=== PATIENT | female | born 1950 | race Caucasian/White ===

== ENCOUNTER 2023-05-28 09:16 | Emergency (ER) | payer OTHER ==
--- OUTSIDE RECORDS SUMMARY | 2023-05-28 09:18 | XMS REPORT | Continuity of Care Document ---
:1950 Author Organization [facility] t Address [address] [place] [address] [address] [place] [address] Care Team Providers Name Role Phone JOANNA GUNTER Primary Care Physician Unavailable RACHEL ROSARIO Attending Clinician Unavailable Izzy Bojorquez Attending Clinician IZZY DIANA Attending Clinician Unavailable IZZY DIANA Admitting Clinician Unavailable Payers Payer Name Policy Type Policy Number Effective Date Expiration Date S ource Problems Condition Condition Condition Status Onset Resolution Last Treating Co mments Source Name Details Category Date Date Treatment Clinician Date No known No known Disease Unive rs active active ity of problems problems [facility] Allergies, Adverse Reactions, Alerts Allergy Allergy Status Severity Reaction(s) Onset Inactive Treating Comm ents Source Name Type Date Date Clinician Codeine Propensi Active Other - See 2020-0 Un stepan ty to comments 4-12 ity of adverse 00:00: [place] reaction 00 [facility] Tetracyc Propensi Active Other - See 2020-0 Yeast U nivers line ty to comments 4-12 infection ity o f adverse 00:00: . [place] reaction 00 [facility] CODEINE DRUG Active Other-Cmnt 2020-0 Unive rs INGREDI 4-12 ity of 00:00: [place] 00 [facility] TETRACYC DRUG Active Other-Cmnt 2020-0 Univ ers LINE INGREDI 4-12 ity of 00:00: [address] NO KNOWN Drug Active Univers ALLERGIE Class ity of S [facility] Social History Social Habit Start Date Stop Date Quantity Comments Source Sexual orientation Method is Hospital Sex Assigned At 1950-09-271948-09-27 Met [facility] [place] [facility] 00:00:00 00:00:00 Smoking Status Start Date Stop Date Source Tobacco smoking consumption unknown [facility] Medications Ordered Filled Start Stop Current Ordering Indication Dosage Frequency Signature Comments Components Source Medication Medication Date Date Medication? Clinician (SIG) Name Name pantoprazol 40mg 40 mg, IV Univers e 10-24 Piggyback, ity of (PROTONIX) 21:30: 20:54 ONCE, 1 Abraham as 40 mg in 00 :00 dose, [facility] NaCl 0.9% 10/25/19 at [facility] ch (NS) 100 mL 1630, 100 MINI-BAG mL pantoprazol Yes [id number] 40mg Take 1 Univers e 40 mg EC 10-24 tablet by ity of tablet 00:00: mouth [place] 00 daily. [facility] Vital Signs Vital Name Observation Time Observation Value Comments Source Systolic blood 2019-10-25 22:38:21 185 mm[facility]Hg[facility] Diastolic blood 2019-10-25 22:38:21 73 mm[Hg] [facility] Heart rate 2019-10-25 22:38:21 63 /min [facility] Respiratory rate 2019-10-25 22:38:21 16 /min [facility] Oxygen saturation in 2019-10-25 22:38:21 99 /min [facility] Arterial blood by [facility] Pulse oximetry [place] Body temperature 2019-10-25 19:06:00 36.22 Nathaly [facility] Body height 2019-10-25 19:06:00 162.6 cm [facility] Body weight 2019-10-25 19:06:00 68.04 kg [facility] BMI 2019-10-25 19:06:00 25.75 kg/m2 [facility] Procedures Procedure Date / Time Performing Clinician Source Performed US GALL BLADDER 2019-10-25 21:47:49 Izzy Diana [facility] XR CHEST 1 VW 2019-10-25 19:54:57 Izzy Diana [facility] CORONAVIRUS COVID-19 2019-10-25 19:44:00 Izzy Diana [facility] TESTING [facility] LIPASE 2019-10-25 19:21:00 Aly Mckeon [facility] TROPONIN I 2019-10-25 19:21:00 Aly Mckeon [facility] COMP. METABOLIC PANEL 2019-10-25 19:21:00 Aly Mckeon [facility] ([id number]) [facility] CBC WITH DIFFERENTIAL 2019-10-25 19:21:00 Aly Mckeon [facility] PROTHROMBIN TIME / INR 2019-10-25 19:21:00 Aly Mckeon [facility] ACTIVATED PARTIAL 2019-10-25 19:21:00 [facility] 2019-10-25 19:21:00 Aly Mckeon [facility] EKG-12 LEAD 2019-10-25 19:19:46 Aly Mckeon [facility] Plan of Care Planned Activity Planned Date Details Comments Source Future Scheduled 2023-05-12 Screening for [facility] Test 06:24:45 malignant neoplasm of colon (procedure) [code = 525661063] Future Scheduled 2023-05-12 Screening for [facility] Test 06:24:45 malignant neoplasm of colon (procedure) [code = 429263016] Future Scheduled 2023-05-12 SHINGLES [facility]ACCINES (2 [facility] 06:24:45 of 3) [code = SHINGLES VACCINES (2 of 3)] Future Scheduled 2023-05-12 65+ [facility]OC[facility]CCAL [facility] Test 06:24:45 VACCINE (1 - PCV) [code = 65+ PNEUMOCOCCAL VACCINE (1 - PCV)] Future Scheduled 2023-05-12 COVID-19 VACCINE (3 - [facility] Test 06:24:45 season) [code = COVID-19 VACCINE (3 - season)] Future Scheduled 2023-05-12 INFLUENZA VACCINE (#1) [facility] 06:24:45 [code = INFLUENZA VACCINE (#1)] Future Scheduled 2023-05-12 Screening for [facility] Test 06:24:45 malignant neoplasm of colon (procedure) [code = 950782140] Future Scheduled 2023-05-12 Screening for [facility] Test 06:24:45 malignant neoplasm of colon (procedure) [code = 369303055] Future Scheduled 2023-05-12 Screening for [facility] Test 06:24:45 malignant neoplasm of colon (procedure) [code = 200010222] Future Scheduled 2023-05-12 Hepatitis C screening [facility] Test 06:24:45 (procedure) [code = 150793820] Future Scheduled 2023-05-12 BREAST CANCER [facility] Test 06:24:45 SCREENING [code = BREAST CANCER SCREENING] Encounters Start End Encounter Admission Attending Care Care Encounter Source Date/Time Date/Time Type Type Clinicians Facility Department ID 2021-09-12 2021-09-12 Outpatient [facility] [id number] [address] [place] 00:00:00 00:00:00 RACHEL [address] 2021-09-12 2021-09-12 Outpatient [facility] [id number] [address] [place] 00:00:00 00:00:00 RACHEL [address] 2019-10-25 2019-10-25 Emergency [facility] [id number] Univers 14:07:56 17:44:00 Izzy Luna [id number] i ty [facility] [id number] [facility] [id number] [facility] 0[address] Branch 2019-10-25 2019-10-25 Emergency X [facility] ERT [id number] Univers 14:07:56 17:44:00 IZZY barrow of [facility] Results Test Description Test Time Test Comments Results Result Comments Source Urinalysis 2019-10-25 20:12:00 Test Item Value Reference Range Interpretation Comme nts APPEARANCE (test code = Clear Clear 6845973518) COLOR (test code = 8625644679) Yellow Yellow PH (test code = 6008985080) 4.8-8.0 SP GRAVITY (test code = 1.003-1.030 3733733379) GLU U QUAL (test code = Normal Normal 0965845803) BLOOD (test code = 5628367770) 1+ Negative A KETONES (test code = 1465414190) Negative Negative PROTEIN (test code = 2887-8) Negative Negative UROBILIN (test code = Normal Normal 8780067074) BILIRUBIN (test code = Negative Negative 9471422712) NITRITE (test code = 4523781727) Negative Negative LEUK SHIRA (test code = Negative Negative 6543966536) RBC/HPF (test code = 8084995071) See_Comment [Automated message] The system which ge nerated this result transmit chai reference range: 0 - 3 HP F. The reference range was not used to interpret th is result as normal/abnormal . WBC/HPF (test code = 1816057049) See_Comment [Automated message] The system which ge nerated this result transmit chai reference range: 0 - 5 HP F. The reference range was not used to interpret th is result as normal/abnormal . BACTERIA (test code = Negative Negative 3186506938) MUCOUS (test code = 5383533962) Slight Negative LPF A SQ EPITH (test code = HPF 2731668489) TRANS EPI (test code = <1 See_Comment [Aut omated message] The 1826006066) system which ge nerated this result transmit chai reference range: <=1 HPF. The reference range was not u sed to interpret this result as normal/abnormal . Lab Interpretation (test code = Abnormal 69878-2) [facility] [id number] 20:11:00 Test Item Value Reference Range Interpretation Comments SARS-CoV-2 (test code = Not Detected Not Detected 72878-8) YANCY (test code = YANCY) ID NOW COVID-19 Assay is an isothermal nucleic acid amplification test intended for the qualitative detection of nucleic acid from SARS-CoV-2 viral RNA in nasopharyngeal ([employer]) specimens. It is used under Emergency Use Authorization (EUA) by FDA. The limit of detection (LOD) of the assay is 125 Genome Equivalents/mL. A positive result is indicative of the presence of SARS-CoV-2 RNA. ?Clinical correlation with patient history and other diagnostic information is necessary to determine patient infection status. A negative (Not Detected) result does not preclude SARS-CoV-2 infection. Clinical correlation with patient history and other diagnostic information should be used in patient management decisions. Invalid: Please collect a new specimen for repeat patient testing if clinically indicated. Lab Interpretation Normal (test code = 81804-3) [facility] 20:08:00 Test Item Value Reference Range Interpretation Comments APTT Patient (test See_Comment [Automat ed code = 3173-2) message] The system which generated this result transmitted reference range : 23 - 38 Seconds . The reference range was not used to interpr et this result as normal/abnormal . YANCY (test code = YANCY) The [facility] patient population mean normal value for aPTT is 30 seconds. Lab Interpretation Normal (test code = 56256-8) [facility] [id number] 20:05:00 Test Item Value Reference Range Interpretation Comments TROPONIN I (test 0.003 ng/mL See_Comment [Automated code = 5479744434) message] The system which generated this result transmitted reference range : <=0.034. The reference range was not used to interpret this result as normal/abnormal . YANCY (test code = Equal or Less than YANCY) 0.034 ng/ml---Normal ?Note: Cardiac troponin begins to rise 3-4 hours after the onset of ischemia. Repeat in 4-6 hours if the sample was drawn within 3-4 hours of the onset of the symptom and found normal. Between 0.035 and 0.120 ng/mL--- Borderline. Questionable myocardial injury or necrosis ? ?Note: Serial measurement may be necessary to confirm or exclude the diagnosis of myocardial injury or necrosis; Clinical correlation (symptoms, EKGs, imaging studies, and others) required; Repeat in 4-6 hours if clinically indicated. ? Equal or Higher than 0.121 ng/mL---Abnormal. Myocardial Injury or Necrosis Likely ? Biotin has been reported to cause a negative bias, interpret results relative to patient's use of biotin. ? Lab Interpretation Normal (test code = 12176-1) [facility] Center[facility] CHEST 1 [id number] 20:00:57 No acute intrathoracic abnormality. Preliminary Report Dictated by Resident: Marc Meneses MD., have reviewed this study and agree with the abovereport.PROCEDURE: XR CHEST 1 VW CLINICAL INDICATION: chest pressure COMPARISON: None FINDINGS: Calcified granulomais seen in the lingula. The lungs are otherwise clear.No pleural effusion or pneumothorax is seen. The heart is normal in size.Calcifications are seen in the aortic arch. No acute bony abnormality. [facility], Radiant Results Inft User - 10/25/2019 3:02 PM CDTPROCEDURE: XR CHEST 1 VWCLINICAL INDICATION: chest pressure COMPARISON: NoneFINDINGS:Calcified granuloma is seen in the lingula. The lungs are otherwise clear.No pleural effusion or pneumothorax is seen. The heart is normal in size.Calcifications areseen in the aortic arch.No acute bony abnormality.IMPRESSIONNo acute intrathoracic abnormality.Preliminary Report Dictated by Resident: Suni Tomlinson, Marc Chiang MD., have reviewed this study and agree with the abovereport.[facility] CenterPROTHROMBIN TIME / [id number] 19:59:00 Test Item Value Reference Range Interpretation Comments PROTIME PATIENT (test See_Comment [Auto mated message] code = 5964-2) The system Arden Reed generated this result transmitted ref erence range: 12.0 - 1 4.7 Seconds. The re ference range was not u sed to interpret this result as normal/abnor mal. INR (test code = 6301-6) Nor mal INR <1.1; Warfarin Therap eutic range 2.0 to 3. 0 or 2.5 to 3.5, dep ending upon the indica tions. Lab Interpretation (test Normal code = 44623-2) [facility] CenterCOMP. METABOLIC PANEL (62391)2019-10-25 19:54:00 Test Item Value Reference Range Interpretation Comments NA (test code = 141 mmol/L 135-145 9028433636) K (test code = 4.0 mmol/L 3.5-5 8628558500) CL (test code = 107 mmol/L 98-108 7347024104) CO2 TOTAL (test code = 26 mmol/L 23-31 8065198594) AGAP (test code = 2-16 7818770614) BUN (test code = 13 mg/dL 7-23 6042873471) GLUCOSE (test code = 142 mg/dL 70-110 H 5764279573) CREATININE (test code = 0.54 mg/dL 0.5-1.04 3160169879) TOTAL BILI (test code = 1.0 mg/dL 0.1-1.1 3960540743) CALCIUM (test code = 9.3 mg/dL 8.6-10.6 2401533485) T PROTEIN (test code = 7.1 g/dL 6.3-8.2 0342886898) ALBUMIN (test code = 4.4 g/dL 3.5-5 9302173909) ALK PHOS (test code = 130 U/L 34-122 H 3226610126) ALTv (test code = 131 U/L 5-35 H 1742-6) AST(SGOT) (test code = 286 U/L 13-40 H 4295116201) eGFR Calculation mL/min/1.73m2 (Non-) (test code = 8228904444) eGFR Calculation mL/min/1.73m2 () (test code = 3028049867) YANCY (test code = YANCY) Association of Glomerular Filtration Rate (GFR) and Staging of Kidney Disease* + --+ --+ ------+| GFR (mL/min/1.73 m2) ?| With Kidney Damage ?| ?Without Kidney Damage+ --------+ --------+ +| ?>90 ?| ?Stage one ?| ? Normal ?+ ---+ ---+ -------+| ?60-89 ?| ?Stage two ?| ? Decreased GFR ? + --+ --+ ------+| ?30-59 ?| ?Stage three ?| ? Stage three ? + --+ --+ ------+| ?15-29 ?| ?Stage four ? | ? Stage four ?+ ---+ ---+ -------+| ?<15 (or dialysis) ? ?| ?Stage five ? | ? Stage five ?+ ---+ ---+ -------+ *Each stage assumes the associated GFR level has been in effect for at least three months. ?Stages 1 to 5, with or without kidney disease, indicate chronic kidney disease. Notes: Determination of stages one and two (with eGFR >59mL/min/1.73 m2) requires estimation of kidney damage for at least three months as defined by structural or functional abnormalities of the kidney, manifested by either:Pathological abnormalities or Markers of kidney damage (including abnormalities in the composition of the blood or urine or abnormalities in imaging tests). Lab Interpretation Abnormal (test code = 25026-8) [facility] CenterLIPASE, [id number] 19:54:00 Test Item Value Reference Range Interpretation Comments LIPASE (test code = 6423511185) 100 U/L 0-220 Lab Interpretation (test code = Normal 62629-4) [facility] CenterCBC WITH [id number] 19:42:00 Test Item Value Reference Range Interpretation Comments WBC (test code = See_Comment [Automated 7690-2) message] The sy stem which generated this result transmitted reference range : 4.30 - 11.10 10*3/?L. The reference range was not used to interpret this result as normal/abnormal . RBC (test code = See_Comment [Automated 789-8) message] The sy stem which generated this result transmitted reference range : 3.93 - 5.25 10*6/?L. The reference range was not used to interpret this result as normal/abnormal . HGB (test code = 13.2 g/dL 11.6-15 718-7) HCT (test code = 39.4 % 35.7-45.2 4544-3) MCV (test code = 89.3 fL 80.6-95.5 787-2) MCH (test code = 29.9 pg 25.9-32.8 785-6) MCHC (test code = 33.5 g/dL 31.6-35.1 786-4) RDW-SD (test code = 40.2 fL 39-49.9 58343-9) RDW-CV (test code = 12.2 % 12-15.5 788-0) PLT (test code = See_Comment [Automated 777-3) message] The sy stem which generated this result transmitted reference range : 166 - 358 10*3/ ?L. The reference r lin was not used to interpret this result as normal/abnormal . MPV (test code = 10.8 fL 9.5-12.9 03743-5) NRBC/100 WBC (test See_Comment [Automat ed code = 7378445928) message] The system which generated this result transmitted reference range : 0.0 - 10.0 /100 WBCs. The refer ence range was not u sed to interpret th is result as normal/abnormal . NRBC x10^3 (test code <0.01 See_Comment [Auto mated = 4297276634) message] The s ystem which generated this result transmitted reference range : 10*3/?L. The reference range was not used to interpret this result as normal/abnormal . GRAN MAT (NEUT) % 81.5 % (test code = 770-8) IMM GRAN % (test code 0.30 % = 4902812074) LYMPH % (test code = 12.7 % 736-9) MONO % (test code = 5.1 % 5905-5) EOS % (test code = 0.1 % 713-8) BASO % (test code = 0.3 % 706-2) GRAN MAT x10^3(ANC) 6.22 10*3/uL 1.88-7.09 (test code = 4451192020) IMM GRAN x10^3 (test <0.03 0-0.06 code = 2139557237) LYMPH x10^3 (test code 0.97 10*3/uL 1.32-3.29 L = 731-0) MONO x10^3 (test code 0.39 10*3/uL 0.33-0.92 = 742-7) EOS x10^3 (test code = <0.03 0.03-0.39 L 711-2) BASO x10^3 (test code <0.03 0.01-0.07 = 704-7) Lab Interpretation Abnormal (test code = 40912-1) [facility]"
--- NOTE | 2023-05-28 09:37 | RAD REPORT ---
EXAM DESCRIPTION: CT - Head Brain Wo Cont - 05/28/2023 9:29 am CLINICAL HISTORY: Pain;Headache COMPARISON: No comparisons TECHNIQUE: All CT scans are performed using dose optimization technique as appropriate and may inclu de automated exposure control or mA/KV adjustment according to patient size. FINDINGS: No intracranial hemorrhage, hydrocephalus or extra-axial fluid collection.No areas of brai n edema or evidence of midline shift. Left occipital scalp hematoma. The paranasal sinuses and mastoids are clear. The calvarium is intact. IMPRESSION: No acute intracranial abnormality.
--- NOTE | 2023-05-28 09:47 | ER ---
Nurse's Notes [facility] Name: Orquidea Chu Age: 72 yrs Sex: Female : 1950 Arrival Date: 05/28/2023 Time: 09:16 Bed 6 Private MD: Diagnosis: Unspecified injury of head, initial encounter Presentation: 05/28 09:25 Chief complaint: Patient states: "I was climbing on boxes, 2-3 ft high, and they mb9 collapsed, and I fell and hit the back of my head on the left side." Pt denies LOC and does not take blood thinners. Coronavirus screen: At this time, the client does not indicate any symptoms associated with coronavirus-19. Ebola Screen: No symptoms or risks identified at this time. Initial Sepsis Screen: Does the patient meet any 2 criteria? No. Patient's initial sepsis screen is negative. Does the patient have a suspected source of infection? No. Patient's initial sepsis screen is negative. Risk Assessment: Do you want to hurt yourself or someone else? Patient reports no desire to harm self or others. Onset of symptoms was May 28, 2023. 09:25 Method Of Arrival: Ambulatory mb9 09:25 Acuity: ANDREW 4 mb9 Triage Assessment: 09:26 General: Appears in no apparent distress. Behavior is calm, cooperative, appropriate mb9 for age. Pain: Complains of pain in posterior head Pain does not radiate. Pain currently is 8 out of 10 on a pain scale. Quality of pain is described as throbbing, Pain began suddenly, Is continuous. EENT: No signs and/or symptoms were reported regarding the EENT system. Neuro: [place] Agitation-Sedation Scale (RASS): 0 - Alert and Calm Level of Consciousness is awake, alert, obeys commands, Oriented to person, place, time, situation, Appropriate for age Pupils are PERRLA. Cardiovascular: Patient's skin is warm and dry. Respiratory: Airway is patent Respiratory effort is even, unlabored, Respiratory pattern is regular, symmetrical. GI: Patient currently denies nausea, vomiting. : No signs and/or symptoms were reported regarding the genitourinary system. Derm: Skin is pink, warm \\T\\ dry. Musculoskeletal: Range of motion: intact in all extremities. Historical: - Allergies: 09:24 TETRACYCLINES; mb9 09:24 Codeine; mb9 - Home Meds: 09:24 levothyroxine oral [Active]; mb9 - PMHx: 09:24 Hypothyroidism; mb9 - PSHx: 09:24 None; mb9 - Immunization history:: Adult Immunizations up to date. - Social history:: Smoking status: Patient denies any tobacco usage or history of. Screenin:27 [facility] ED Fall Risk Assessment (Adult) History of falling in the last 3 months, mb9 including since admission Yes- single mechanical fall (1 pt) Confusion or Disorientation No (0 pts) Intoxicated or Sedated No (0 pts) Impaired Gait No (0 pts) Mobility Assist Device Used No (0 pt) Altered Elimination No (0 pt) Score/Fall Risk Level 0 - 2 = Low Risk Oriented to surroundings, Maintained a safe environment, Educated pt \\T\\ family on fall prevention, incl call for assistance when getting out of bed. Abuse screen: Denies threats or abuse. Nutritional screening: No deficits noted. Tuberculosis screening: No symptoms or risk factors identified. Assessment: :27 Reassessment: see triage assessment. mb9 09:29 Reassessment: pt taken to CT via wheelchair. mb9 Vital Signs: 09:25 BP 169 / 91; Pulse 77; Resp 16; Temp 98; Pulse Ox 100% on R/A; Weight 58.51 kg; Height mb9 5 ft. 4 in. ; Pain 8/10; 09:56 BP 158 / 84; Pulse 74; Resp 14; Pulse Ox 100% ; ko1 09:25 Body Mass Index 22.14 (58.51 kg, 162.56 cm) mb9 09:25 Pain Scale: Adult mb9 [place] Coma Score: 09:28 Eye Response: spontaneous(4). Motor Response: obeys commands(6). Verbal Response: mb9 oriented(5). Total: 15. ED Course: 09:16 Patient arrived in ED. rg4 09:17 Luz Samuels RN is Primary Nurse. mb9 09:18 Linnette Jerez FNP-C is PHCP. kb 09:18 Unruly Corona MD is Attending Physician. kb 09:23 Arm band placed on. mb9 09:26 Triage completed. mb9 09:27 Bed in low position. Call light in reach. Side rails up X 1. Client placed on mb9 continuous cardiac and pulse oximetry monitoring. NIBP monitoring applied. Door closed. Noise minimized. Warm blanket given. 09:27 No provider procedures requiring assistance completed. mb9 09:31 CT Head Brain wo Cont In Process Unspecified. EDMS 09:56 Provided Education on: safety. ko1 09:56 Patient did not have IV access during this emergency room visit. ko1 Administered Medications: No medications were administered Medication: 09:28 VIS not applicable for this client. mb9 Outcome: 09:47 Discharge ordered by . bonnie 09:56 Discharged to home ambulatory, ko1 09:56 Condition: stable 09:56 Discharge instructions given to patient, Instructed on discharge instructions, follow up and referral plans. safety practices, Demonstrated understanding of instructions, follow-up care, 09:57 Patient left the ED. ko1 Signatures: Dispatcher [employer] EDKS Linnette Jerez, DEONNA ABDULP-Mackenzie Hopper rg4 Danuta Thompson RN RN ko1 Luz Samuels, RN RN mb9 Corrections: (The following items were deleted from the chart) 09:25 09:24 Allergies: No Known Allergies; mb9 mb9
--- NOTE | 2023-05-28 09:47 | EDPHYS ---
Physician Documentation [facility] Name: Orquidea Chu Age: 72 yrs Sex: Female : 1950 Arrival Date: 05/28/2023 Time: 09:16 Bed 6 Private MD: ED Physician Unruly Corona HPI: 05/28 09:29 This 72 yrs old Female presents to ER via Ambulatory with complaints of Fall Injury, kb Head Injury Without LOC-Adult. 09:29 Patient is a 72-year-old female with a history of hypothyroidism who presents for kb hematoma to the back of the head after falling in a storage unit while trying to climb over some boxes. Denies any other injury. Denies LOC. States she came in to make sure she did not have any bleeding in her brain.. Historical: - Allergies: 09:24 TETRACYCLINES; mb9 09:24 Codeine; mb9 - Home Meds: 09:24 levothyroxine oral [Active]; mb9 - PMHx: 09:24 Hypothyroidism; mb9 - PSHx: 09:24 None; mb9 - Immunization history:: Adult Immunizations up to date. - Social history:: Smoking status: Patient denies any tobacco usage or history of. ROS: 09:28 Constitutional: Negative for fever, chills, and weight loss, kb 09:28 Skin: Positive for hematoma, of the left parietal area, 09:28 Neuro: Positive for headache, 09:28 All other systems are negative, Exam: 09:28 Constitutional: This is a well developed, well nourished patient who is awake, alert, kb and in no acute distress. Eyes: Pupils equal round and reactive to light, extra-ocular motions intact. Lids and lashes normal. Conjunctiva and sclera are non-icteric and not injected. Cornea within normal limits. Periorbital areas with no swelling, redness, or edema. ENT: Moist Mucous membranes Cardiovascular: Regular rate Respiratory: Respirations even and unlabored. No increased work of breathing. Talking in full sentences Skin: Warm, dry with normal turgor. Normal color. MS/ Extremity: Pulses equal, no cyanosis. Neurovascular intact. Full, normal range of motion. Neuro: Awake and alert, GCS 15, oriented to person, place, time, and situation. Moves all extremities. Normal gait. 09:28 Head/face: Noted is no obvious of injury or deformity except hematoma, that is moderate, of the left parietal area, Vital Signs: 09:25 BP 169 / 91; Pulse 77; Resp 16; Temp 98; Pulse Ox 100% on R/A; Weight 58.51 kg; Height mb9 5 ft. 4 in. ; Pain 8/10; 09:56 BP 158 / 84; Pulse 74; Resp 14; Pulse Ox 100% ; ko1 09:25 Body Mass Index 22.14 (58.51 kg, 162.56 cm) mb9 09:25 Pain Scale: Adult mb9 [place] Coma Score: 09:28 Eye Response: spontaneous(4). Motor Response: obeys commands(6). Verbal Response: mb9 oriented(5). Total: 15. MDM: 09:18 Patient medically screened. kb 09:28 Differential diagnosis: abrasion, closed head injury, contusion, Hematoma, ICH. Data kb reviewed: vital signs, nurses notes. 09:46 Counseling: I had a detailed discussion with the patient and/or guardian regarding the kb historical points, exam findings, and any diagnostic results supporting the discharge/admit diagnosis, radiology results, the need for outpatient follow up, a family practitioner, to return to the emergency department if symptoms worsen or persist or if there are any questions or concerns that arise at home. 05/28 09:20 Order name: CT Head Brain wo Cont; Complete Time: 09:46 kb Administered Medications: No medications were administered Disposition Summary: 05/28/23 09:47 Discharge Ordered Notes: Location: Home kb Condition: Stable kb Diagnosis - Unspecified injury of head, initial encounter kb Followup: kb - With: Emergency Department - When: As needed - Reason: Worsening of condition Followup: kb - With: Private Physician - When: 2 - 3 days - Reason: Recheck today's complaints, Continuance of care, Re-evaluation by your physician Discharge Instructions: - Discharge Summary Sheet kb - Hematoma, [id number] kb - Head Injury, Adult, [id number] kb Forms: - Medication Reconciliation Form kb - Thank You Letter kb - Antibiotic Education kb - Prescription Opioid Use kb - Patient Portal Instructions kb - Leadership Thank You Letter kb Addendum: 05/29/2023 10:11 I was immediately available for consultation during this patient's visit. I did not e c2 personally see the patient or guide the patient's care.. Signatures: Dispatcher [employer] Linnette Mckeon FNP-C FNP-Ckb Breneman, Mary Beth, RN RN mb9 Unruly Corona MD MD ec2 Corrections: (The following items were deleted from the chart) 05/28 09:25 09:24 Allergies: No Known Allergies; ken mb9
[2023-05-28 10:10] VITALS: TEMP 98; O2SAT 100
[2023-05-28 10:11] VITALS: BP 158/84
== END 2023-05-28 09:57 | disposition home or self-care (01) ==
LOC: ER 09:16
DX: S00.83XA Contusion of other part of head, initial encounter (principal); E03.9 Hypothyroidism, unspecified; Z88.1 Allergy status to other antibiotic agents; Z88.5 Allergy status to narcotic agent
CPT/HCPCS: 70450; 99283

== ENCOUNTER → 2024-08-28 | Day surgery (SDC) | payer OTHER | LOC: LAB 08:30 | PROVIDERS: ATTEND Internal Medicine | DX: E86.0 Dehydration (principal); M81.0 Age-related osteoporosis without current pathological fracture; R13.10 Dysphagia, unspecified | CPT/HCPCS: 36415; 80048 ==

== ENCOUNTER 2024-09-07 10:15 | Day surgery (SDC) | payer OTHER ==
[2024-09-07] MEDS: Zoledronic Acid/Mannitol/Water 5 MG/100 ML INFUS.BOT IV ONE (10:44)
[2024-09-07 11:15] VITALS: BP 147/59; TEMP 98.3; O2SAT 100; BMI 23.8
== END 2024-09-07 11:09 | disposition home or self-care (01) ==
LOC: DS 10:15
PROVIDERS: ATTEND Internal Medicine
DX: M81.0 Age-related osteoporosis without current pathological fracture (principal); R13.10 Dysphagia, unspecified
CPT/HCPCS: 96365; J3489